=== PATIENT | male | born 1990 | race Caucasian/White ===

== ENCOUNTER 2025-05-01 16:17 | Emergency (ER) | payer BC, OTHER ==
[~2025-05-01] VITALS: Ht 185.4 cm; Wt 197.3 kg
[~2025-05-01 16:17] MED LIST: AMOCLA875 PO; OXYACE7.5T PO
[2025-05-01 16:26] VITALS: BP 147/7
[2025-05-01 16:48] LABS: BASOPHILS ABSOLUTE AUTO 0.05 K/mm3 (0.00-0.23); BASOPHILS PERCENT AUTO 1 % (0-2); EOSINOPHILS ABSOLUTE AUTO 0.17 K/mm3 (0.00-0.68); EOSINOPHILS PERCENT AUTO 2 % (0-6); Hematocrit 45.8 % (37.0-53.0); Hemoglobin 15.6 g/dL (13.5-17.5); IMMATURE GRAN ABSOLUTE AUTO 0.01 K/mm3 (0.00-0.10); IMMATURE GRAN PERCENT AUTO 0 % (0-1); LYMPHOCYTES ABSOLUTE AUTO 2.29 K/mm3 (0.84-5.20); LYMPHOCYTES PERCENT AUTO 28 % (21-46); MONOCYTES ABSOLUTE AUTO 0.64 K/mm3 (0.16-1.47); MONOCYTES PERCENT AUTO 8 % (4-13); Mean Corpuscular HGB 30.2 pg (26.0-34.0); Mean Corpuscular HGB Conc 34.1 g/dL (31.5-36.5); Mean Corpuscular Volume 89 fL (80-100); Mean Platelet Volume 10.3 fL (9.1-12.4); NEUTROPHILS ABSOLUTE AUTO 5.08 K/mm3 (1.96-9.15); NEUTROPHILS PERCENT AUTO 62 % (41-73); Platelet Count 223 K/mm3 (150-400); RDW Coefficient Variation 12.2 % (11.7-14.2); RDW Standard Deviation 39.9 fL (35.1-46.3); Red Blood Cell Count 5.16 M/mm3 (4.30-5.90); White Blood Cell Count 8.24 K/mm3 (4.00-11.30)
[2025-05-01 17:22] LABS: Albumin, Blood 3.7 g/dL (3.4-5.0); Bilirubin, Total 0.6 mg/dL (0.1-1.0); Calcium, Blood 9.1 mg/dL (8.5-10.1); Creatinine, Blood 0.8 mg/dL (0.60-1.20); Globulin, Blood 3.7 g/dL (2.2-4.0); Potassium, Blood 3.8 mmol/L (3.5-5.5); Total Protein, Blood 7.4 g/dL (6.4-8.2)
== END 2025-05-01 19:28 | disposition home or self-care (01) ==
LOC: ER 16:17
PROVIDERS: Emergency Medicine
DX: R07.9 Chest pain, unspecified (principal); Z79.2 Long term (current) use of antibiotics
CPT/HCPCS: 71046; 80053; 84484; 85025; 93005; 93010; 99284-25

== ENCOUNTER 2025-05-07 15:23 | Emergency (ER) | payer BC, OTHER ==
[~2025-05-07] VITALS: Ht 185.4 cm; Wt 190.0 kg
[2025-05-07 15:45] VITALS: BP 157/108
[2025-05-07] MEDS ORDERED: XARELTO15 MG PO (17:14)
== END 2025-05-07 17:55 | disposition home or self-care (01) ==
LOC: ER 15:23
DX: I82.462 Acute embolism and thrombosis of left calf muscular vein (principal); Z59.89 Other problems related to housing and economic circumstances; Z79.2 Long term (current) use of antibiotics
CPT/HCPCS: 93971; 99283-25